=== PATIENT | male | born 2000 | race Two or more races ===

== ENCOUNTER 2024-02-22 15:15 | Emergency (ER) | payer MEDICAID, OTHER ==
[~2024-02-22] VITALS: Ht 172.7 cm; Wt 89.1 kg
[2024-02-22] MEDS ORDERED: IBUP-1456 PO (18:24)
[2024-02-22] MEDS ORDERED: CLIN1CAP70 PO (18:24)
[2024-02-22] MEDS: TETANUS-DIPTH-ACEL PERTUSSIS 0.5ML SYR Tdap IM ONE (18:45)
[2024-02-22] MEDS: cefTRIAXone SOD 1,000 MG VL IM ONE (18:45)
[2024-02-22 18:47] VITALS: BP 122/78; PULSE 85; RESP 18; TEMP 98; O2SAT 98
== END 2024-02-22 18:51 | disposition home or self-care (01) ==
LOC: EDBD 15:15 → ER 15:15
DX: S91.111A Laceration without foreign body of right great toe without damage to nail, initial encounter (principal); Z79.899 Other long term (current) drug therapy; W22.8XXA Striking against or struck by other objects, initial encounter; Y93.89 Activity, other specified; Y92.89 Other specified places as the place of occurrence of the external cause; Y99.8 Other external cause status
CPT/HCPCS: 12001; 90471; 90715; 96372; 99284; J0696